=== PATIENT | female | born 2000 | race Hispanic/Latino ===

== ENCOUNTER 2024-02-21 23:09 | Emergency (ER) | payer SELFPAY, OTHER ==
[2024-02-22 02:40] LABS: Absolute Basophils 0.1 K/uL (0-0.5); Absolute Eosinophils 0.1 K/uL (0-0.5); Absolute Lymphocytes (CBC) 2.1 K/uL (0.7-4.9); Absolute Monocytes 0.7 K/uL (0.1-1.3); Absolute Neutrophil 13.2 K/uL (1.8-8.0); Basophils % 0.4 % (0-1.3); Eosinophils % 0.3 % (0-4.4); Hemoglobin 11.5 g/dL (12.0-15.0); MCH 23.7 pg (27.0-35.0); MCHC 31.9 g/dL (32.0-36.0); MCV 74.2 fL (80-100); MPV 7.5 fL (7.6-11.3); Monocytes % 4.3 % (3.3-12.3); Platelets 422 thou/uL (152-406); RBC Red Blood Cell Count 4.86 M/uL (3.86-4.86)
[2024-02-22] MEDS ORDERED: MORPHINE 4 MG/ML SYR ONE (02:46)
[2024-02-22] MEDS ORDERED: NA CHLORIDE 0.9% 1,000 ML ONE (02:47)
[2024-02-22 02:55] LABS: Anion Gap 8.6 mEq/L (5.0-15.0); Potassium 3.6 mEq/L (3.5-5.1)
[2024-02-22 02:57] LABS: Specific Gravity 1.022 (1.005-1.030); Sqamous Epithelial <5 /HPF (None Seen); Urine Bacteria None Seen /HPF (<20); Urine Bilirubin NEGATIVE (Negative); Urine Blood Negative (Negative); Urine Clarity Turbid (Clear); Urine Color Light-Yellow (Yellow); Urine Crystals Unidentified Few /HPF (None Seen); Urine Culture Reflex Order NOT NEEDED; Urine Glucose NEGATIVE (Negative); Urine Ketones NEGATIVE (Negative); Urine Microscopic Reflex YN ORDER UMIC; Urine Mucus Slight /HPF (None Seen); Urine Nitrite NEGATIVE (Negative); Urine Protein NEGATIVE (Negative); Urine RBC <5 /HPF (None Seen); Urine Urobilinogen Normal (Normal); Urine WBC <5 /HPF (<5); Urine pH 5.5 (5.0-7.0)
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
[2024-02-22 07:56] VITALS: BP 118/64; TEMP 98; O2SAT 98
== END 2024-02-22 05:11 | disposition home or self-care (01) ==
LOC: ER 23:09
DX: S06.0X0A Concussion without loss of consciousness, initial encounter (principal); S90.812A Abrasion, left foot, initial encounter; S90.32XA Contusion of left foot, initial encounter; V49.49XA Driver injured in collision with other motor vehicles in traffic accident, initial encounter
CPT/HCPCS: 36415; 70450; 71260; 72125; 74177; 80048; 81001; 84703; 85025; 86850; 86900; 86901; 96361; 96374; 99284; J7030; Q9967